=== PATIENT | male | born 1955 | race Caucasian/White ===

== ENCOUNTER 2021-02-19 11:53 | Day surgery (SDC) | payer MEDICARE, SELFPAY ==
[2021-02-12 15:38] VITALS: BMI 37.6
[2021-02-19 12:37] VITALS: BP 142/76; PULSE 59; RESP 16; TEMP 36.8; O2SAT 98
--- NOTE | 2021-02-19 13:15 | MHC.SHP ---
Pre-Procedural Eval Section A Date of Service: 02/19/21 Section B Chief Complaint: Dysphagia Details of Present Illness: globus sensation in throat, soft stools Relevant Family History (Specify if Yes): No Relevant Social History: None Present Medications: see Short Stay Collaborative assessment Medical History: Significant History (CAD, SD, HTn, high cholesterol, ) History of Previous Operations: Relevant previous surgery/procedure and date(s) (coronary stents, biceps repair) Allergies: Allergies Allergy/AdvReac Type Severity Reaction Status Date / Time beta blockers Allergy heart Uncoded 02/12/21 15:36 stopped Review of Systems Sugical H&P ROS: Negative: Constitution, Cardiovascular, Respiratory, Neurological, Psychiatric, Hem-Onc, Allergic/Immunologic, Gastrointestinal, Genitourinary, Musculoskeletal, Integumentary, Endocrine and Eyes/Ears/Nose/Throat Exam Surgical H&P Exam: Normal: HEENT, Normal: Heart, Normal: Lungs, Normal: Extremities, Normal: Abdomen, Normal: Skin and Normal: Neurological Plan Diagnosis/Plan: Unchanged I have reviewed the history and physical and performed a pertinent physical examination on my patient. No changes have occurred unless specified. EGD for assessment of globus sensation and duodenal bx due to abn stools
--- NOTE | 2021-02-19 13:46 | P.BOP_ITS ---
Brief Operative Note Date of Service: 02/19/21 Pre-op diagnosis: globus, abn stool habit Post-op diagnosis: same Procedure: see op note Surgeon: Carissa Manrique MD Anesthesia: MAC Was an Equipment Mechanic used for this Procedure?: No Estimated blood loss (mL): 0 Condition: stable Disposition: PACU
--- NOTE | 2021-02-19 13:47 | W.PM.OPN ---
Operative Note Operative Note Date of Service: 02/19/21 Narrative: Procedure Description: EGD FLEXIBLE TRANSORAL UPPER GASTROINTESTINAL ENDOSCOPY UPPER ENDOSCOPY Consent: Indications for the procedure and potential complications of bleeding, perforation, reaction to medications and missed diagnosis were discussed with the patient and informed consent was obtained. Instrument: Olympus GIF H 190 J mid size upper endoscope Monitoring: Vital signs and clinical assessment, continuous EKG monitoring, Pulse oximetry, Carbon Dioxide monitoring and blood pressure monitoring were done throughout the procedure. Procedure: The patient was placed in the left lateral decubitis position and pre-procedure medications were administered and a bite block was placed. The endoscope was inserted into the mouth and advanced under direct vision to the third part of duodenum. A careful inspection was made as the upper endoscope was withdrawn including a retroflexed examination of the proximal stomach; Findings and interventions are described below. Findings: Larynx:normal Esophagus: GE junction at 40 cm, diaphragm hiatus at 42 cm, with 2 cm sliding hiatal hernia. There were tongues of inflammed salmon pink mucosa possible inflammed barretts esophagus, bx taken. Bx also taken from distal and proximal esophagus in separate jars. Stomach: Patchy gastric erythema krissy antrum. Biopsies were obtained. Grade 2 flap valve on retroflexed examination of the cardia. There were several fundic gland polyps noted which are benign. Duodenum: Normal bulb and descending duodenum, Intervention: Biopsies as noted above Impression/Findings: hiatal hernia esophagitis and possible barretts fundic gland polyps PLAN: await bx, if not taking PPI may benefit from this needs o/p colonoscopy reflux precautions
--- NOTE | 2021-02-19 13:50 | HO.ANESPROP2 ---
HPI - Anesthesia Eval Consult details Narrative: 65 M for EGD PMF Past Medical History Medical History (Updated 02/12/21 @ 15:35 by Alysa Chance, RN) Diarrhea Dysphagia Elevated cholesterol HTN (hypertension) Hx of myocardial infarction Tear of biceps tendon Functional capacity: independent ambulation Family History Family history of problems with anesthesia: No Surgical History Surgical History (Updated 02/12/21 @ 15:42 by Alysa Chance, RN) H/O heart artery stent Hx of cardiac catheterization Hx of colonoscopy History of Problems with Anesthesia: No Social History Social History Patient Tobacco Use Status: Never used Tobacco Meds Allergies Allergy/AdvReac Type Severity Reaction Status Date / Time beta blockers Allergy heart Uncoded 02/12/21 15:36 stopped Home Medications Medication Instructions Recorded Confirmed Last Taken Type aspirin 81 mg tablet,delayed 81 mg PO DAILY 02/12/21 02/12/21 Unknown History release atorvastatin 80 mg tablet 80 mg PO BEDTIME 02/12/21 02/12/21 02/19/21 History lisinopril 40 mg tablet 40 mg PO BEDTIME 02/12/21 02/12/21 02/19/21 History Exam Exam Date and Time: February 19, 2021 1350 Height,Weight and Vital Signs: Height 5 ft 11 in Weight 122.47 kg Last Vital Signs Temp 98.3 F 02/19/21 12:37 Pulse 59 02/19/21 12:37 Resp 16 02/19/21 12:37 BP 142/76 H 02/19/21 12:37 Pulse Ox 98 02/19/21 12:37 Airway Mallampati Class: II TM Dist: >3cm Neck ROM: Full Loose/Missing/Broken Teeth: Yes (Chipped and missing ) Heart: rrr Lungs: bl breath sounds Assessment and Plan Assessment Anesthesia Assessment: Anesthesia Plan Discussed Final Anesthetic Review Family History of Problems with Anesthesia: No History of Problems with Anesthesia: No NPO: Yes ASA Class: III Final Preanesthetic Review: Meds/Allgs Chart Reviewed Patient Risk: Intermediate Procedure Risk: Intermediate Anesthetic Plan Anesthetic Plan: MAC: Disposition: Standard PACU
[2021-02-19 15:00] VITALS: BP 134/72; PULSE 51; RESP 16; O2SAT 96
[2021-02-19 15:05] VITALS: BP 127/79; O2SAT 98
[2021-02-19 15:20] VITALS: BP 134/72; PULSE 54; RESP 18; O2SAT 99
[2021-02-19 15:30] VITALS: BP 127/79; PULSE 52; RESP 18; O2SAT 99
[2021-02-19 15:40] VITALS: BP 125/72; PULSE 52; RESP 18; TEMP 36.9; O2SAT 99
== END 2021-02-19 15:50 | disposition home or self-care (01) ==
PROVIDERS: Visit Provider Internal Medicine Gastroenterology
PROC: 0DJ08ZZ Inspection of Upper Intestinal Tract, Via Natural or Artificial Opening Endoscopic (ICD-10-PCS; CPT 43235; principal; 2021-02-19 14:00)
DX: R13.10 Dysphagia, unspecified (principal); K20.80 Other esophagitis without bleeding; K29.50 Unspecified chronic gastritis without bleeding; K31.7 Polyp of stomach and duodenum; K44.9 Diaphragmatic hernia without obstruction or gangrene; E78.5 Hyperlipidemia, unspecified; I25.10 Atherosclerotic heart disease of native coronary artery without angina pectoris; Z98.61 Coronary angioplasty status; I25.2 Old myocardial infarction; I10 Essential (primary) hypertension; Z79.82 Long term (current) use of aspirin; Z79.899 Other long term (current) drug therapy
CPT/HCPCS: 43239; 88305; 88342; J2250

== ENCOUNTER 2022-08-13 07:23 | Day surgery (SDC) | payer MEDICARE, SELFPAY ==
--- NOTE | 2022-08-12 10:18 | P.CONAN_ITS ---
Documented by User: Lisseth Garber NP 08/12/22 10:19 HPI - Anesthesia Eval Consult details Narrative: 67yo M for Colonoscopy [facility] Past Medical History Medical History Diarrhea Dysphagia Elevated cholesterol HTN (hypertension) Hx of myocardial infarction Tear of biceps tendon Family History Family history of problems with anesthesia: No Surgical History Surgical History H/O heart artery stent History of esophagogastroduodenoscopy (EGD) Hx of cardiac catheterization Hx of colonoscopy History of Problems with Anesthesia: No Social History Social History Patient Tobacco Use Status: Never used Tobacco Advance Directives: No Advance Directives Information Provided: Yes Meds Allergies Allergy/AdvReac Type Severity Reaction Status Date / Time beta blockers Allergy Severe heart Uncoded 08/11/22 11:09 stopped Home Medications Medication Instructions Recorded Confirmed Last Taken Type aspirin 81 mg tablet,delayed 81 mg PO DAILY 02/12/21 02/12/21 Unknown History release atorvastatin 80 mg tablet 80 mg PO BEDTIME 02/12/21 02/12/21 02/19/21 History lisinopril 40 mg tablet 40 mg PO BEDTIME 02/12/21 02/12/21 02/19/21 History Exam Exam Date and Time: August 12, 2022 1018 Assessment and Plan Final Anesthetic Review Family History of Problems with Anesthesia: No History of Problems with Anesthesia: No Documented by User: Naomy Mccabe MD 08/13/22 07:45 [facility] Past Medical History Medical History Diarrhea Dysphagia Elevated cholesterol HTN (hypertension) Hx of myocardial infarction Tear of biceps tendon Surgical History Surgical History H/O heart artery stent History of esophagogastroduodenoscopy (EGD) Hx of cardiac catheterization Hx of colonoscopy Social History Social History Patient Tobacco Use Status: Never used Tobacco Advance Directives: No Advance Directives Information Provided: Yes Meds Allergies Allergy/AdvReac Type Severity Reaction Status Date / Time beta blockers Allergy Severe heart Uncoded 08/11/22 11:09 stopped Home Medications Medication Instructions Recorded Confirmed Last Taken Type aspirin 81 mg tablet,delayed 81 mg PO DAILY 02/12/21 02/12/21 Unknown History release atorvastatin 80 mg tablet 80 mg PO BEDTIME 02/12/21 02/12/21 02/19/21 History lisinopril 40 mg tablet 40 mg PO BEDTIME 02/12/21 02/12/21 02/19/21 History Exam Airway Mallampati Class: II TM Dist: >3cm Neck ROM: Full Heart: rrr Lungs: cta Assessment and Plan Assessment Anesthesia Assessment: Anesthesia Plan Discussed and Chart Reviewed Final Anesthetic Review NPO: Yes ASA Class: II Final Preanesthetic Review: No Changes in Pt Med Stat, Meds/Allgs Chart Reviewed, Consent Obtained/Reviewed and Anes Risks/Benef Reviewed Patient Risk: Intermediate Procedure Risk: Low Anesthetic Plan Anesthetic Plan: MAC: Disposition: Standard PACU
[2022-08-13 07:30] VITALS: BMI 40.3
[2022-08-13 07:59] VITALS: BP 163/77; PULSE 49; RESP 16; TEMP 36.2; O2SAT 97
--- NOTE | 2022-08-13 08:42 | P.HPSUR_ITS ---
Pre-Procedural Eval Section A Date of Service: 08/13/22 Section B Chief Complaint: Encounter for screening for malignant neoplasm Relevant Family History (Specify if Yes): No Relevant Social History: None Present Medications: see Short Stay Collaborative assessment Medical History: Significant History (Diarrhea Dysphagia Elevated cholesterol HTN (hypertension) Hx of myocardial infarction Tear of biceps tendon) History of Previous Operations: Relevant previous surgery/procedure and date(s) (H/O heart artery stent History of esophagogastroduodenoscopy (EGD) Hx of cardiac catheterization Hx of colonoscopy) Allergies: Allergies Allergy/AdvReac Type Severity Reaction Status Date / Time beta blockers Allergy Severe heart Uncoded 08/11/22 11:09 stopped Review of Systems Sugical H&P ROS: Negative: Constitution, Cardiovascular, Respiratory, Neurologi tova, Psychiatric, Hem-Onc, Allergic/Immunologic, Gastrointestinal, Genitourinary, Musculoskeletal, Integumentary, Endocrine and Eyes/Ears/Nose/Throat Exam Surgical H&P Exam: Normal: HEENT, Normal: Heart, Normal: Lungs, Normal: Extremities, Normal: Abdomen, Normal: Skin and Normal: Neurological Plan Diagnosis/Plan: Unchanged I have reviewed the history and physical and performed a pertinent physical examination on my patient. No changes have occurred unless specified. Time Spent With Patient Time: Total time managing care of this patient today ____ minutes.
--- NOTE | 2022-08-13 08:44 | P.OP_ITS ---
Operative Note Operative Note Date of Service: 08/13/22 Narrative: Operative Information Procedure Description: Colonoscopy Indication: screening Anesthesia: MAC COLONOSCOPY Instrument: Olympus variable stiffness pediatric scope 190L Colonoscopy Monitoring: Vital signs and clinical assessment, continuous EKG monitoring, Pulse oximetry, Carbon Dioxide monitoring and blood pressure monitoring were done throughout the procedure. Colon withdrawal time was 9 minutes. Procedure: The patient was placed in the left lateral decubitis position and pre-procedure medications were administered. After a digital rectal examination of the ano-rectum, the video colonoscope was inserted into the rectum and advanced through the colon to the cecum/TI. The colonoscope was slowly withdrawn in a retrograde panoramic fashion and the colon mucosa was carefully examined including a retroflexed view of the rectum. Findings and interventions are described below. Procedure Difficulty: easy Findings: Terminal Ileum-normal Cecum:normal Ascending Colon: normal Transverse Colon - 4-5 mm sessile polyp removed with cold forceps, 6-8 mm sessile polyp removed with cold snare Descending Colon:normal Sigmoid Colon: normal Rectum: Retroflexion with small internal hemorrhoids, grade I Anorectum - normal Colon preparation: [place] Bowel Preparation Scale Right colon; 2 Transverse colon: 2 Left colon; 2 (0 = Unprepared colon segment with mucosa not seen due to solid stool that canno t be cleared. 1 = Portion of mucosa of the colon segment seen, but other areas of the colon segment not well seen due to staining, residual stool and/or opaque liquid. 2 = Minor amount of residual staining, small fragments of stool and/or opaque liquid, but mucosa of colon segment seen well. 3 = Entire mucosa of colon segment seen well with no residual staining, small fragments of stool or opaque liquid) Impression and Post Procedure Diagnosis: polyps internal hemorrhoids Plan: High fiber diet leaflet Avoid straining at stool, epsom salts and sitz bath, anusol supps or cream Repeat Colonoscopy in 5-6 years or earlier if clinically indicated Above findings were reviewed with the patient and relevant handouts were provided if indicated.
[2022-08-13 09:10] VITALS: BP 98/47; PULSE 95; RESP 16; TEMP 36.1; O2SAT 96
[2022-08-13 09:25] VITALS: BP 133/85; PULSE 49; RESP 16; TEMP 36.1; O2SAT 97
== END 2022-08-13 10:00 | disposition home or self-care (01) ==
PROVIDERS: PCP Internal Medicine; Visit Provider Internal Medicine Gastroenterology
PROC: 0DJD8ZZ Inspection of Lower Intestinal Tract, Via Natural or Artificial Opening Endoscopic (ICD-10-PCS; CPT 45378; principal; 2022-08-13 08:30)
DX: Z12.11 Encounter for screening for malignant neoplasm of colon (principal); D12.3 Benign neoplasm of transverse colon; K64.0 First degree hemorrhoids; R19.7 Diarrhea, unspecified; R13.10 Dysphagia, unspecified; E78.00 Pure hypercholesterolemia, unspecified; I10 Essential (primary) hypertension; I25.2 Old myocardial infarction; Z95.5 Presence of coronary angioplasty implant and graft; Z79.82 Long term (current) use of aspirin; Z79.899 Other long term (current) drug therapy; Z88.8 Allergy status to other drugs, medicaments and biological substances
CPT/HCPCS: 45385; 45380; 88305

== ENCOUNTER 2024-02-14 12:27 | Outpatient (AMB) | payer MEDICARE, SELFPAY ==
--- NOTE | 2024-02-14 12:27 | A.OFFVIS_ITS ---
Intake Visit Reasons: med refill pantoprazole Intake Note: Patient follow up for med refill Pantoprazole Patient denies any GI issues for today. Drug Safety Scientist Required: No Accompanied by: Self / Same As Patient Allergies beta blockers Allergy (Severe, Uncoded 08/11/22 11:09) heart stopped HPI HPI med refill pantoprazole: Details: 68 yr old m being called for f/u he is doing well no issues with dysphagia no chest pain taking PPI once daily hx of tubualr adenoma, repeat colo 2027 lost weight as well with diet measures exam: looks relaxed, good color A/P; 1/ GERD< controlled 2/ tubualr adenoma PLAN: 1/ cont with PPI, if doing good can cut down to 20 mg daily 2/rept colo 4-5 yrs 3/ advised to add MV and vit D supplement PFSH Medical History Diarrhea Dysphagia Elevated cholesterol HTN (hypertension) Hx of myocardial infarction Tear of biceps tendon Surgical History History of esophagogastroduodenoscopy (EGD) Hx of colonoscopy H/O heart artery stent Hx of cardiac catheterization Social History Do you presently have visiting nurse or other home services: No Patient Tobacco Use Status: Never used Tobacco Telehealth Telehealth Telehealth Platform: [facility] Location of provider rendering services: practice address Location of patient: address on file Patient Identification confirmed using: Name, : Yes Telehealth method: video Patient verbally consented to treatment: Yes Patient verbally consented to billing insurance company: Yes Patient informed of any privacy concerns related to visit: Yes Minutes spent on Phone/Video with Pt.: 5 Assessment & Plan Assessment & Plan (1) GERD (gastroesophageal reflux disease): Code(s): K21.9 - Gastro-esophageal reflux disease without esophagitis Category: Medical Plan: see above Coding Level of Care Code Tele Est Pt Level 3 (42010) Diagnoses GERD (gastroesophageal reflux disease) K21.9
== END 2024-02-16 09:23 | disposition home or self-care (01) ==
LOC: HO.HGI 12:27
PROVIDERS: PCP Internal Medicine; Visit Provider Internal Medicine Gastroenterology
DX: K21.9 Gastro-esophageal reflux disease without esophagitis (principal)
CPT/HCPCS: 99213